=== PATIENT | male | born 1960 | race African-American/Black ===

== ENCOUNTER 2024-01-05 19:17 | Inpatient (IN) | payer OTHER ==
[2024-01-05] MEDS ORDERED: LIDOCAINE 4% PATCH TP ONE (21:08)
[2024-01-05] MEDS ORDERED: ACETAMINOPHEN 325 MG TABLET (FP) ONE (21:08)
[2024-01-05] MEDS ORDERED: diazePAM 5 MG TABLET ONE (21:08)
[2024-01-05] MEDS: ACETAMINOPHEN 325 MG TABLET (FP) PO ONE (21:29)
[2024-01-05] MEDS: diazePAM 5 MG TABLET PO ONE (21:29)
[2024-01-05 21:30] LABS: BASO % 0.6 % (0-2.0); EOS % 1.9 % (0-4.5); HEMATOCRIT 31.5 % (35.4-49); HEMOGLOBIN 10.3 GM/dL (11.7-16.9); LYMPH % 25.2 % (8-40); MCH 26.3 pg (25.7-33.7); MCHC 32.6 g/dl (32.0-35.9); MEAN CELL VOLUME 80.6 fl (80-96); MONO % 8.1 % (3.8-10.2); NEUT % 64.2 % (42.8-82.8); PLATELET COUNT 250 10^3/uL (134-434); RBC 3.91 M/mm3 (4.00-5.60); RDW 15.5 % (11.9-15.9); WHITE BLOOD COUNT 6.2 K/mm3 (4.0-10.0)
[2024-01-05] MEDS: LIDOCAINE 5% TOPICAL PATCH TP ONE (21:30)
[2024-01-05 21:47] LABS: POTASSIUM 4.6 mmol/L (3.5-5.1)
[2024-01-05 21:50] LABS: ALBUMIN 3.2 g/dl (3.4-5.0); BLOOD UREA NITROGEN 38.6 mg/dL (7-18); CALCIUM 8.6 mg/dL (8.5-10.1)
[2024-01-05 21:53] LABS: CREATININE 1.2 mg/dL (0.55-1.3)
[2024-01-05 21:54] LABS: BILIRUBIN,TOTAL 0.3 mg/dL (0.2-1); TOT PROT 6.7 g/dl (6.4-8.2)
[2024-01-05] MEDS: LIDOCAINE PATCH REMOVAL MC SCH (22:01)
[2024-01-06] MEDS ORDERED: DOCUSATE SODIUM 100 MG CAPSULE (FP) PO PRN (00:17)
[2024-01-06] MEDS ORDERED: ACETAMINOPHEN 1000 MG/100 ML BAG IVPB PRN (00:25)
[2024-01-06] MEDS: SODIUM CHLORIDE 1,000 ML IV SCH (00:51)
[2024-01-06] MEDS ORDERED: GABAPENTIN 100 MG CAPSULE ONE (02:04)
[2024-01-06] MEDS: GABAPENTIN 100 MG CAPSULE PO ONE (02:07)
[2024-01-06 04:22] VITALS: BMI 22.6
[2024-01-06] MEDS: INSULIN ASPART SLIDING SCALE (NOVOLOG) 1 VIAL SQ SCH (06:58)
[2024-01-06 08:25] LABS: BASO % 0.5 % (0-2.0); EOS % 2.5 % (0-4.5); HEMATOCRIT 29.8 % (35.4-49); MCH 26.8 pg (25.7-33.7); MCHC 33.5 g/dl (32.0-35.9); MEAN CELL VOLUME 80.2 fl (80-96); MEAN PLT VOLUME 7.4 fl (7.5-11.1); PLATELET COUNT 229 10^3/uL (134-434); RBC 3.71 M/mm3 (4.00-5.60); RDW 15.5 % (11.9-15.9); WHITE BLOOD COUNT 4.7 K/mm3 (4.0-10.0)
[2024-01-06 08:40] LABS: POTASSIUM 4.8 mmol/L (3.5-5.1)
[2024-01-06 08:48] LABS: BLOOD UREA NITROGEN 34.4 mg/dL (7-18); CALCIUM 8.5 mg/dL (8.5-10.1); MAGNESIUM 2.3 mg/dL (1.8-2.4)
[2024-01-06 08:51] LABS: CREATININE 1.1 mg/dL (0.55-1.3)
[2024-01-06] MEDS ORDERED: methylPREDNISolone NA SUCC 40 MG/1 ML VIAL IVPB SCH (11:00)
[2024-01-06] MEDS ORDERED: ALBUTEROL SO4 HFA INHALER IH PRN (11:05)
[2024-01-06] MEDS: METHYLPREDNISOLONE NA SUCC 1,000 MG in DEXTROSE 5%-WATER - 250 ML IVPB ONE (13:59)
[2024-01-07] MEDS: methylPREDNISolone NA SUCC 40 MG/1 ML VIAL IVPB SCH (07:34)
[2024-01-07] MEDS: ALBUTEROL SO4 2.5/IPRATROPIUM 0.5 INH SOL 3 ML VIAL.NEB. NEB SCH (14:40)
[2024-01-07] MEDS: ACETAMINOPHEN 325 MG TABLET (FP) PO PRN (17:16)
[2024-01-07] MEDS: methylPREDNISolone NA SUCC 125 MG/2 ML VIAL IVPUSH SCH (21:58)
[2024-01-08] MEDS ORDERED: INSULIN (LEVEMIR) 100 UNITS/ML UNITS SQ ONE (07:53)
[2024-01-08] MEDS ORDERED: INSULIN ASPART SLIDING SCALE (NOVOLOG) 1 VIAL SQ ONE (07:53)
[2024-01-08] MEDS: methylPREDNISolone NA SUCC 125 MG/2 ML VIAL IVPUSH SCH (10:46)
[2024-01-09 10:10] LABS: HEMATOCRIT 32.1 % (35.4-49); HEMOGLOBIN 10.5 GM/dL (11.7-16.9); MCH 26.5 pg (25.7-33.7); MCHC 32.6 g/dl (32.0-35.9); MEAN CELL VOLUME 81.1 fl (80-96); MEAN PLT VOLUME 7.7 fl (7.5-11.1); PLATELET COUNT 314 10^3/uL (134-434); RBC 3.96 M/mm3 (4.00-5.60); RDW 15.2 % (11.9-15.9)
[2024-01-09 10:17] LABS: INR 1.03 (0.83-1.09)
[2024-01-09 10:38] LABS: POTASSIUM 4.8 mmol/L (3.5-5.1)
[2024-01-09 10:40] LABS: CALCIUM 8.6 mg/dL (8.5-10.1)
[2024-01-09 10:41] LABS: ALBUMIN 2.9 g/dl (3.4-5.0); BLOOD UREA NITROGEN 32.7 mg/dL (7-18); MAGNESIUM 2.3 mg/dL (1.8-2.4)
[2024-01-09 10:44] LABS: CREATININE 0.9 mg/dL (0.55-1.3); PHOSPHOROUS 3.8 mg/dL (2.5-4.9)
[2024-01-09 10:45] LABS: ANISOCYTOSIS 1+; BILIRUBIN,TOTAL 0.2 mg/dL (0.2-1); MACROCYTOSIS 0; OVALOCYTE 1+; TOT PROT 6.4 g/dl (6.4-8.2)
[2024-01-09] MEDS ORDERED: PROPOFOL 100 ML ONE (13:46)
[2024-01-09 14:35] LABS: COCAINE, UR NEGATIVE (NEGATIVE)
[2024-01-09 14:36] LABS: METHADONE, UR NEGATIVE (NEGATIVE); OPIATES, URI NEGATIVE (NEGATIVE); PHENCYCLIDINE,URINE NEGATIVE (NEGATIVE); URINE BENZODIAZEPINES NEGATIVE (NEGATIVE)
[2024-01-09 14:38] LABS: URINE AMPHETAMINES NEGATIVE (NEGATIVE); URINE BARBITURATES NEGATIVE (NEGATIVE)
[2024-01-13 13:46] VITALS: BP 138/74; PULSE 78; RESP 18; TEMP 98.7
== END 2024-01-13 20:37 | disposition short-term general hospital (02) | DRG 40 ==
LOC: JER 19:17 → INTOOBSV 23:12 → JERBED 23:12 → J6S 01-06 04:08 → JERBED 01-06 10:29 → J6S 01-06 10:34 → OBSVTOIN 01-07 09:34
PROVIDERS: ADMIT Internal Medicine; ATTEND Family Medicine
DX: S14.0XXA Concussion and edema of cervical spinal cord, initial encounter (principal); S01.81XA Laceration without foreign body of other part of head, initial encounter; E11.9 Type 2 diabetes mellitus without complications; R53.1 Weakness; J44.9 Chronic obstructive pulmonary disease, unspecified; R29.898 Other symptoms and signs involving the musculoskeletal system; J45.909 Unspecified asthma, uncomplicated; M48.02 Spinal stenosis, cervical region; F17.210 Nicotine dependence, cigarettes, uncomplicated; Z59.00 Homelessness unspecified; Z78.9 Other specified health status; V03.99XA Pedestrian with other conveyance injured in collision with car, pick-up truck or van, unspecified whether traffic or nontraffic accident, initial encounter; Y93.89 Activity, other specified; Y92.89 Other specified places as the place of occurrence of the external cause; Y99.8 Other external cause status
CPT/HCPCS: 36415; 70450-TC; 70551-TC; 71045-TC-FY; 72125-TC; 72141-TC; 73130-TC-LT-FY; 80048; 80053; 80307; 82550; 82553; 82607; 82962; 83735; 84100; 84443; 85025; 85610; 86618; 86850; 86900; 86901; 93005; 93010; 94010; 94640; 97116-GP; 97162-GP; 99285-25; G0378

== ENCOUNTER 2024-02-17 11:34 | Emergency (ER) | payer OTHER ==
[2024-02-17 11:44] VITALS: PULSE 68; RESP 18; BMI 21.6
[2024-02-17] MEDS ORDERED: IBUPROFEN 600 MG TABLET (FP) PO ONE (13:30)
[2024-02-17] MEDS: IBUPROFEN 600 MG TABLET (FP) PO ONE (13:32)
[2024-02-17 17:43] VITALS: BP 106/58; TEMP 98.1
== END 2024-02-17 17:58 | disposition home or self-care (01) ==
LOC: JER 11:34
DX: R60.0 Localized edema (principal); M25.512 Pain in left shoulder; M79.622 Pain in left upper arm; G89.29 Other chronic pain
CPT/HCPCS: 93971; 99284-25

== ENCOUNTER 2025-02-05 09:02 | Emergency (ER) | payer OTHER ==
[2025-02-05 09:12] VITALS: BP 120/83; PULSE 73; RESP 18; TEMP 98.9; BMI 22.6
[2025-02-05] MEDS ORDERED: ACETAMINOPHEN 500 MG TABLET (FP) ONE (09:50)
[2025-02-05] MEDS: ACETAMINOPHEN 500 MG TABLET (FP) PO ONE (09:52)
== END 2025-02-05 11:30 | disposition home or self-care (01) ==
LOC: JER 09:02
DX: S00.83XA Contusion of other part of head, initial encounter (principal); R42 Dizziness and giddiness; W07.XXXA Fall from chair, initial encounter
CPT/HCPCS: 99283-25